=== PATIENT | female | born 2000 | race Caucasian/White ===

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

== ENCOUNTER 2018-04-29 12:51 | Outpatient (CLI) | payer MEDICAID ==
[2018-04-29 14:58] LABS: APPEARANCE,URINE CLEAR; BILIRUBIN,URINE NEGATIVE (NEGATIVE); COLOR,URINE YELLOW; GLUCOSE, URINE NEGATIVE (NEGATIVE); KETONES,URINE NEGATIVE (NEGATIVE); LEUKOCYTE ESTERASE,URINE NEGATIVE (NEGATIVE); NITRITE,URINE NEGATIVE (NEGATIVE); PROTEIN,URINE NEGATIVE (NEGATIVE); URINE SPECIFIC GRAVITY 1.005; UROBILINOGEN,URINE NEGATIVE mg/dL (<2.0)
[2018-04-29 15:10] LABS: URINE AMPHETAMINES SCREEN NEGATIVE; URINE BARBITURATES SCREEN NEGATIVE; URINE BENZODIAZEPINES SCREEN NEGATIVE; URINE COCAINE SCREEN NEGATIVE; URINE MARIJUANA (THC) SCREEN NEGATIVE; URINE METHADONE SCREEN NEGATIVE; URINE PHENCYCLIDINE SCREEN NEGATIVE
== END 2018-04-29 15:29 | disposition home or self-care (01) ==
LOC: LC 12:51
PROVIDERS: ATTEND Obstetrics & Gynecology
PROC: 4A1HXCZ Monitoring of Products of Conception, Cardiac Rate, External Approach (ICD-10-PCS; principal; 2018-04-29)
DX: O47.02 False labor before 37 completed weeks of gestation, second trimester (principal); Z3A.26 26 weeks gestation of pregnancy
CPT/HCPCS: 80307; 81001

== ENCOUNTER 2018-08-04 11:51 | Inpatient (IN) | payer MEDICAID ==
[2018-08-14] MEDS ORDERED: RINGERS SOLUTION,LACTATED 300 ML IV ONE (19:46)
[2018-08-14] MEDS ORDERED: DINOPROSTONE 10 MG VAGINAL INSERT.SR PV PRN (19:46)
[2018-08-14 20:17] LABS: APPEARANCE,URINE SLIGHTLY-CLOUDY; BILIRUBIN,URINE NEGATIVE (NEGATIVE); COLOR,URINE YELLOW; GLUCOSE, URINE NEGATIVE (NEGATIVE); KETONES,URINE NEGATIVE (NEGATIVE); LEUKOCYTE ESTERASE,URINE MODERATE (NEGATIVE); NITRITE,URINE NEGATIVE (NEGATIVE); PROTEIN,URINE 30 mg/dL (NEGATIVE); URINE SPECIFIC GRAVITY 1.009; UROBILINOGEN,URINE NEGATIVE mg/dL (<2.0)
[2018-08-14 20:23] LABS: ABSOLUTE EOSINOPHILS # (AUTO) 0.1 10^3/uL (0.0-0.6); ABSOLUTE LYMPHOCYTES (AUTO) 2.2 10^3/uL (0.5-4.7); ABSOLUTE MONOCYTES (AUTO) 0.8 10^3/uL (0.1-1.4); ABSOLUTE NEUT (AUTO) 9.7 10^3/uL (1.7-8.2); BASOPHILS % (AUTO) 0.2 % (0-2); EOSINOPHILS % (AUTO) 0.6 % (0-6); HEMATOCRIT 34.9 % (36.0-47.0); HEMOGLOBIN 12.2 g/dL (12.0-15.5); LYMPHOCYTES % (AUTO) 17.4 % (13-45); MEAN CORPUSCULAR HGB CONC 34.9 g/dL (32.0-36.0); MEAN CORPUSCULAR VOLUME 95 fl (80-97); MONOCYTES % (AUTO) 6.2 % (3-13); PLATELET COUNT 271 10^3/uL (150-450); RED BLOOD COUNT 3.69 10^6/uL (3.72-5.28); RED CELL DISTRIBUTION WIDTH 13.4 % (11.5-14.0); SEGMENTED NEUTROPHILS % (AUTO) 75.6 % (42-78); TOTAL CELLS COUNTED % (AUTO) 100 %; WHITE BLOOD COUNT 12.8 10^3/uL (4.0-10.5)
[2018-08-14] MEDS ORDERED: DINOPROSTONE 10 MG VAGINAL INSERT.SR ONE (20:40)
[2018-08-14] MEDS: RINGERS SOLUTION,LACTATED 1,000 ML IV PRN (20:41)
[2018-08-14 20:50] LABS: URINE AMPHETAMINES SCREEN NEGATIVE; URINE BARBITURATES SCREEN NEGATIVE; URINE BENZODIAZEPINES SCREEN NEGATIVE; URINE COCAINE SCREEN NEGATIVE; URINE MARIJUANA (THC) SCREEN NEGATIVE; URINE METHADONE SCREEN NEGATIVE; URINE PHENCYCLIDINE SCREEN NEGATIVE
[2018-08-15] MEDS: RINGERS SOLUTION,LACTATED 1,000 ML IV PRN ×4 (04:29→21:14)
--- NOTE | 2018-08-15 08:16 | Admission Physical ---
Datetime Report Generated by CPN: 08/15/2018 08:16 CURRENT ADMISSION Chief Complaint: Scheduled Induction of Labor Indication for Induction: Post Dates Admit Impression : Postterm, Intrauterine ; Induction of Labor Admit Plan- Other: Continue with cervical ripening. Pt may eat breakfast and shower this morning. ALLERGIES Medication Allergies: Yes Medication Allergies: bismuth subsalicylate/Hives (12/23/2017) Latex: No Latex Allergies OBSTETRICAL HISTORY EDC: 08/04/2018 00:00 : 1 Para: 0 Term: 0 : 0 SAB: 0 IAB: 0 Ectopic: 0 Livin Cesareans: 0 VBACs: 0 Multiple Births: 0 Gestational Diabetes: No Rh Sensitization: No Incompetent Cervix: No RJ: No Infertility: No ART Treatment: No Uterine Anomaly: No IUGR: No Hx Previous C/S: No Macrosomia: No Hx Loss/Stillborn: No PIH: No Hx : No Placenta Previa/Abruption: No Depression/PP Depression: No PTL/PROM: No Post Hemorrhage: No Current Procedures: Ultrasound; NST SEE RECORDS Alcohol: No Marijuana : No Cocaine: No Other Illicit Drugs: No Cigarettes: Former Smoker. [id number] MEDICAL HISTORY Diabetes: No Blood Transfusion: No Pulmonary Disease (Asthma, TB): No Breast Disease: No Hypertension: No Manager Grant Surgery: No Heart Disease: No Hosp/Surgery: No Autoimmune Disorder: No Anesthetic Complications: No Kidney Disease: No Abnormal Pap Smear: No Neuro/Epilepsy: No Psychiatric Disorders: No Other Medical Diseases: No Hepatitis/Liver Disease: No Significant Family History: No Varicosities/Phlebitis: No Trauma/Violence : No Thyroid Dysfunction: No INFECTIOUS HISTORY Gonorrhea: No Genital Herpes: No Chlamydia: No Tuberculosis: No Syphilis: No Hepatitis: No HIV/AIDS Exposure: No Rash or Viral Illness: No HPV: No PHYSICAL EXAM General: Normal HEENT: Normal Neurologic: Normal Thyroid: Normal Heart: Normal Lungs: Normal Breast: Normal Back: Normal Abdomen: Normal Genitourinary Exam: Normal Extremities: Normal DTRs: Normal Pelvic Type: Adequate Vital Signs: Reviewed; Within Normal Limits MEMBRANES Membranes: Ruptured FETUS A EGA: 41.4 Monitoring: External US FHR- Baseline: 130 Variability: Moderate 6-25bpm Accelerations: 15X15 Decelerations: None FHR Category: Category I Estimated Weight (gm): 3800 Presentation: Vertex Admit Comment: Pt brought in last night for Cervidil IOL at 41+wks. Doing well this morning, no complaints. GBS negative, plans an epidural when in active labor. Will allow pt to eat breakfast and shower, then will do a VE to assess for cervical change. Attending MD is Dr Baum today PLANS FOR LABOR AND DELIVERY Labor and Delivery: None Pain Management: Epidural Feeding Preference: Formula Benefit of Breast Feed Discussed: Yes Circumcision: N/A INFORMED CONSENT Assignment: Elizabeth Baum MD Signature: with User ID: [email or web address] : with User ID: [email or web address]
[2018-08-15] MEDS ORDERED: OXYTOCIN/NORMAL SALINE 20 UNIT/1,000 ML RTUINJ IV PRN (10:11)
[2018-08-15] MEDS ORDERED: OXYTOCIN 10 UNIT/ML VIAL ONE (10:12)
[2018-08-15] MEDS ORDERED: MISOPROSTOL 0.2 MG TABLET ONE (10:13)
[2018-08-15] MEDS ORDERED: OXYTOCIN/NORMAL SALINE 20 UNIT/1,000 ML RTUINJ ONE (10:13)
[2018-08-15] MEDS ORDERED: LIDOCAINE 1% INJ-PF (10 MG/ML) 30 ML SDV ONE (10:13)
[2018-08-15] MEDS ORDERED: NALBUPHINE HCL INJ 10 MG/1 ML AMPULE INJ ONE ×2 (11:12→17:45)
--- NOTE | 2018-08-15 11:23 | L&D Progress Notes ---
PROGRESS NOTES Datetime Report Generated by CPN: 08/15/2018 11:23 PROGRESS NOTE Impression: Reassuring Heart Rate Procedures: Sterile Vag Exam Procedures- Other: Guillen's Catheter placed Plan: Continue Present Management; Induction Vital Signs : Reviewed; Within Normal Limits Comment: s/p Cervidil overnight, pt did eat breakfast, doing well this morning. No Complaints. Will to start Pitocin to continue with IOL. Pt plans an epidural when in active labor VAGINAL EXAM Dilatation: 1 Effacement: 70 Station: -1 Contractions: q2-3 mild MEMBRANES Membranes: Intact Membranes: Ruptured FETUS A FHR - Baseline: 130 Monitoring: External US Variability: Moderate 6-25bpm Accelerations: 15X15 Decelerations: None FHR Category: Category I : 41.0 Estimated Weight (gm): 3800 Presentation: Vertex SIGNATURE SIGNATURE: [id number];[id number] SIGNATURE: [id number] Assignment: Elizabeth Baum MD Signature: with User ID: [email or web address] : with User ID: [email or web address]
[2018-08-15] MEDS ORDERED: NALBUPHINE HCL INJ 10 MG/1 ML AMPULE ONE ×2 (11:24→17:43)
--- NOTE | 2018-08-15 15:42 | L&D Progress Notes ---
PROGRESS NOTES Datetime Report Generated by CPN: 08/15/2018 15:42 PROGRESS NOTE Impression: Reassuring Heart Rate; Rupture of Membranes Procedures: Artificial ROM; Sterile Vag Exam Plan: Continue Present Management; Induction Informed Consent Obtained- Other: pt may have an epidural Vital Signs : Reviewed; Within Normal Limits Comment: s/p Guillen's catheter, now has fallen out. Pitocin infusing. Pt remains fairly comfortable, but may have an epidural when desires. Position changes encouraged. GBS negative VAGINAL EXAM Dilatation: 5 Effacement: 70 Station: -1 MEMBRANES Membranes: Ruptured Amniotic Fluid Color: Bloody FETUS A Monitoring: External US FHR Category: Category I FETUS C SIGNATURE: [id number];[id number] Assignment: Elizabeth Baum MD Signature: with User ID: [email or web address] : with User ID: [email or web address]
--- NOTE | 2018-08-15 17:53 | L&D Progress Notes ---
PROGRESS NOTES Datetime Report Generated by CPN: 08/15/2018 17:52 PROGRESS NOTE Impression: Reassuring Heart Rate Procedures: Sterile Vag Exam Procedures- Other: by RN Plan: Continue Present Management; Induction Plan Other: Continue Pitocin, may have IV pain medication for now Vital Signs : Reviewed; Within Normal Limits Comment: Pitocin continues, pt desires IV pain medication, may have epidural if she desires. Position changes encouaged. Anticipate . MEMBRANES Membranes: Ruptured Amniotic Fluid Color: Clear FETUS A FHR - Baseline: 125 Monitoring: External US Variability: Moderate 6-25bpm Accelerations: 15X15 Decelerations: None FHR Category: Category I FETUS C SIGNATURE: [id number];[id number] Assignment: Elizabeth Baum MD Signature: with User ID: [email or web address] : with User ID: [email or web address]
--- NOTE | 2018-08-15 19:00 | L&D Progress Notes ---
PROGRESS NOTES Datetime Report Generated by CPN: 08/15/2018 18:59 PROGRESS NOTE Impression: Reassuring Heart Rate Procedures: Sterile Vag Exam Plan: Continue Present Management Plan Other: Continue with Pitocin, pt may have an epidural Vital Signs : Reviewed; Within Normal Limits Comment: Pt desires an epidural. Continue with Pitocin, Anticipate , Position changes encouraged VAGINAL EXAM Dilatation: 6 Effacement: 70 Station: -1 Contractions: q2 MEMBRANES Membranes: Ruptured Amniotic Fluid Color: Clear FETUS A FHR - Baseline: 140 Monitoring: External US Variability: Moderate 6-25bpm Accelerations: 15X15 Decelerations: None FHR Category: Category I FETUS C SIGNATURE: [id number];[id number] Assignment: Elizabeth Baum MD Signature: with User ID: [email or web address] : with User ID: [email or web address]
[2018-08-15] MEDS ORDERED: EPHEDRINE SULFATE INJ 50 MG/1 ML AMPULE ONE (20:17)
[2018-08-15] MEDS ORDERED: FENTANYL/BUPIVACAINE/NS/PF 300 MCG/150 ML RTUINJ EPI ONE (20:18)
[2018-08-15] MEDS ORDERED: BUPIVACAINE HCL 0.5 % INJ/PF 30 ML SDV ONE (20:19)
--- NOTE | 2018-08-15 22:36 | L&D Progress Notes ---
PROGRESS NOTES Datetime Report Generated by CPN: 08/15/2018 22:36 PROGRESS NOTE Impression: Arrest of Dilatation/Descent Impression Other: protracted induction noted. Plan Other: IUPC placed Vital Signs : Reviewed; Within Normal Limits Comment: Appears to be protracted labor. MEMBRANES Pooling: Positive Membranes: Ruptured FETUS A Monitoring: External US : 41.0 FETUS C SIGNATURE: [id number];[id number] Signature: with User ID: [email or web address]
--- NOTE | 2018-08-16 00:57 | L&D Progress Notes ---
PROGRESS NOTES Datetime Report Generated by CPN: 08/16/2018 00:57 PROGRESS NOTE Impression: Reassuring Heart Rate Plan: Continue Present Management Comment: Some progression noted. We will continue with the induction. VAGINAL EXAM Dilatation: 7 Effacement: 80 Station: -1 FETUS A FHR - Baseline: 140 Variability: Moderate 6-25bpm FHR Category: Category I FETUS C SIGNATURE: [id number];[id number] Signature: with User ID: [email or web address]
[2018-08-16] MEDS ORDERED: GLYCERIN/WITCH HAZEL LEAF 1 EACH MED..PAD TP PRN (03:54)
[2018-08-16] MEDS ORDERED: DIPHENHYDRAMINE HCL 25 MG CAPSULE PO PRN (03:54)
[2018-08-16] MEDS ORDERED: ACETAMINOPHEN WITH CODEINE #3 TABLET PO PRN ×2 (03:54)
[2018-08-16] MEDS ORDERED: PROMETHAZINE HCL 25 MG TABLET PO PRN (03:54)
[2018-08-16] MEDS ORDERED: OXYTOCIN/NORMAL SALINE 20 UNIT/1,000 ML RTUINJ IV PRN (03:54)
[2018-08-16] MEDS ORDERED: DIBUCAINE 1% OINTMENT 28 GM TP PRN (03:54)
[2018-08-16] MEDS ORDERED: MAGNESIUM HYDROXIDE SUSP 30 ML UDCUP PO PRN (03:54)
[2018-08-16] MEDS ORDERED: ACETAMINOPHEN 650 MG SUPP.RECT PR PRN (03:54)
[2018-08-16] MEDS ORDERED: DIPH/PERTUSS(ACELL)/TETANUS VAC/PF 0.5 ML SYR (>=10YO) IM PRN (03:54)
[2018-08-16] MEDS ORDERED: PROMETHAZINE HCL INJ 25 MG/1 ML VIAL IV PRN (03:54)
[2018-08-16] MEDS ORDERED: PROMETHAZINE HCL 25 MG SUPP.RECT PR PRN (03:54)
[2018-08-16] MEDS ORDERED: NA PHOS,M-B/NA PHOS,DI-BA (ADULT) 133 ML ENEMA PR PRN (03:54)
[2018-08-16] MEDS ORDERED: MEASLES,MUMPS&RUBELLA VACC/PF 0.5 ML VIAL SUBCUT PRN (03:54)
[2018-08-16] MEDS ORDERED: ZOLPIDEM TARTRATE 5 MG TABLET PO PRN (03:54)
[2018-08-16] MEDS ORDERED: PSEUDOEPHEDRINE HCL 30 MG TABLET PO PRN (03:54)
--- NOTE | 2018-08-16 05:12 | Delivery Summary ---
Del Sum A-C Datetime Report Generated by CPN: 08/16/2018 05:12 DELIVERY PERSONNEL DELIVERY PERSONNEL: [id number] Delivery Doctor:: Elizabeth Baum MD Labor and Delivery Nurse:: Elham Rene RN River Rafting Guide/OIL EXPELLER: Aislinn Ayala, COMMERCIAL BAKING TEACHER Additional Personnel: : Rosita Massimo, RN MATERNAL INFORMATION Delivery Anesthesia: Epidural Medications After Delivery: Pitocin Drip 20 Units/1000ml NSS Estimated Blood Loss (ml): 250 Maternal Complications: None LABOR SUMMARY EDC: 08/04/2018 00:00 No. Babies in Womb: 1 Attempted: No Labor Anesthesia: Epidural LABOR INFORMATION Reason for Induction: Post Dates Onset of Labor: 08/16/2018 00:52 Complete Dilatation: 08/16/2018 02:59 Cervical Ripening Agents: Patricio Balloon Oxytocin: Induction Group B Beta Strep: negative Antibiotics # of Doses: 0 Steroids Given: None Reason Steroids Not Administered: Not Applicable MEMBRANES Membranes Rupture Method: Artificial Rupture of Membranes: 08/15/2018 15:34 Length of Rupture (hr): 11.85 Amniotic Fluid Color: Clear Amniotic Fluid Amount: Small Amniotic Fluid Odor: Normal STAGES OF LABOR Stage 1 hr: 2 Stage 1 min: 7 Stage 2 hr: 0 Stage 2 min: 26 Stage 3 hr: 0 Stage 3 min: 4 Total Time in Labor hr: 2 Total Time in Labor min: 37 VAGINAL DELIVERY Episiotomy: None Laceration #1: Vaginal Laceration Extension #1: Second Degree Laceration #2: None Laceration Extension #2: N/A Laceration #3: None Laceration Extension #3: N/A Laceration Repair: Yes Laceration Repair Note: Repair with 3-0 chromic in the usual fashion. Second degree laceration just to the rectum but not through the musculature of the rectum. Sponge Count Correct: Vaginal Sweep Performed Sharps Count Correct: Yes BABY A INFORMATION Delivery Date/Time: 08/16/2018 03:25 Method of Delivery: Vaginal Born in Route : No : N/A Forceps: N/A Vacuum Extraction: N/A Shoulder Dystocia : No PRESENTATION/POSITION BABY A Presentation: Cephalic Cephalic Presentation: Vertex Vertex Position: Right Occipital Anterior Breech Presentation: N/A PLACENTA INFORMATION BABY A Placenta Delivery Time : 08/16/2018 03:29 Placenta Method of Delivery: Spontaneous Placenta Status: Delivered SCORES BABY A Heart Rate 1 min: >100 bpm Resp Effort 1 min: Good Cry Reflex Irritability 1 min: Cough or Sneeze or Pulls Away Muscle Tone 1 min: Active Motion Color 1 min: Blue/Pale SCORE 1 MIN: 8 Heart Rate 5 min: >100 bpm Resp Effort 5 min: Good Cry Reflex Irritability 5 min: Cough or Sneeze or Pulls Away Muscle Tone 5 min: Active Motion Color 5 min: Body [place], Extremities Blue SCORE 5 MIN: 9 INFANT INFORMATION BABY A Gestational Age at Delivery: 41.5 Gestational Status: Late Term- 41- 41.6 Weeks Infant Outcome : Liveborn Condition : Stable Infant Sex: Female IDENTIFICATION BABY A Infant Verification Date/Time: 08/16/2018 03:34 ID Band Number: [id number] Mother's Name Verified: Yes RN Verifying Infant: SMilana Keys, RNC WEIGHT/LENGTH BABY A Infant Birthweight (gm): 4070 Weight (lb): 9 Infant Weight (oz): 0 Length (in): 20.50 Infant Length (cm): 52.07 CORD INFORMATION BABY A No. Cord Vessels: 3 Nuchal Cord : N/A Cord Blood Taken: Yes-For Storage (Mom's Blood type +) Infant Suction: None ASSESSMENT BABY A Infant Complications: None Physical Findings at Delivery: Within Normal Limits Skin to Skin: Yes Transferred To: Remains with Mother SIGNATURES Signature: with User ID: [email or web address]
[2018-08-16] MEDS: BENZOCAINE/MENTHOL AEROSOL SPRAY 56 ML TOP PRN (06:21)
[2018-08-16] MEDS: IBUPROFEN 800 MG TABLET PO SCH ×3 (06:21→21:44)
[2018-08-16] MEDS: DOCUSATE SODIUM 100 MG CAPSULE PO SCH ×2 (09:46→19:38)
[2018-08-16] MEDS: SENNOSIDES/DOCUSATE 8.6-50 MG 1 EACH TABLET PO SCH (09:46)
[2018-08-16] MEDS: PRENATAL VITAMIN W DHA CAPSULE PO SCH (09:47)
[2018-08-16] MEDS: FERROUS SULFATE 325 MG TABLET PO SCH ×2 (09:47→19:38)
[2018-08-16] MEDS: FAMOTIDINE 20 MG TABLET PO SCH ×2 (09:47→21:44)
[2018-08-16] MEDS: VALACYCLOVIR HCL 500 MG TABLET PO SCH (09:55)
--- NOTE | 2018-08-16 10:47 | PDOC PROGRESS REPORT ---
Subjective-OB Progress Note for:: 08/16/18 Subjective: PP Day 0, delivered this am. Pt doing well, denies heavy bleeding. Regular diet and voiding without difficulty. C/o pain with 2* perineal laceration. Physical Exam (OB) Vital Signs: Temp Pulse Resp BP Pulse Ox 98.6 F 100 16 88/52 L 100 08/16/18 08:18 08/16/18 09:13 08/16/18 08:18 08/16/18 09:13 08/16/18 08:18 Intake & Output 08/15/18 08/16/18 08/17/18 06:59 06:59 06:59 Intake Total 975 1812 Balance 975 1812 Weight 105.8 kg - Abdomen Description: Tender, Soft Hernia Present: No Fundal Description: Firm, Midline Fundal Height: u/u - u/2 Objective-Diagnostic Laboratory: 08/14/18 20:04 Assessment and Plan(PN) - Assessment and Plan (1) (normal spontaneous vaginal delivery) Is this a current diagnosis for this admission?: Yes (2) Perineal laceration during delivery, delivered Is this a current diagnosis for this admission?: Yes Plan:: Encouraged [place] - Time Spent with Patient Time with patient: Less than 15 minutes Medications reviewed and adjusted accordingly: Yes - Disposition Anticipated Discharge: Home Within: within 48 hours
[2018-08-17] MEDS: IBUPROFEN 800 MG TABLET PO SCH ×3 (05:52→21:26)
[2018-08-17 07:39] LABS: HEMATOCRIT 26.9 % (36.0-47.0); MEAN CORPUSCULAR HEMOGLOBIN 33.2 pg (27.0-33.4); MEAN CORPUSCULAR HGB CONC 34.6 g/dL (32.0-36.0); MEAN CORPUSCULAR VOLUME 96 fl (80-97); PLATELET COUNT 195 10^3/uL (150-450); RED CELL DISTRIBUTION WIDTH 13.3 % (11.5-14.0)
[2018-08-17 07:41] LABS: HEMOGLOBIN 9.3 g/dL (12.0-15.5)
--- NOTE | 2018-08-17 08:53 | PDOC PROGRESS REPORT ---
Subjective Progress Note for:: 08/17/18 Subjective:: Patient states that she feels good; decreasing lochia. Patient denies chest pain, shortness of breath, fever/chills and nausea/vomiting. She is ambulating and voiding without difficulty. Reason For Visit: INDUCTION Physical Exam - Physical Exam Vital Signs: Temp Pulse Resp BP Pulse Ox 97.8 F 82 20 102/60 98 08/17/18 07:50 08/17/18 07:50 08/17/18 07:50 08/17/18 07:50 08/17/18 07:50 Intake & Output 08/16/18 08/17/18 08/18/18 06:59 06:59 06:59 Intake Total 1812 Balance 1812 General appearance: PRESENT: no acute distress Respiratory exam: PRESENT: clear to auscultation iván Cardiovascular exam: PRESENT: RRR GI/Abdominal exam: PRESENT: normal bowel sounds, soft - Fundus firm and below umbilicus Extremities exam: ABSENT: calf tenderness, clubbing, full ROM, joint swelling, pedal edema, tenderness, +1 edema, +2 edema, other Result Laboratory Results: 08/17/18 06:46 08/17/18 06:46 WBC 11.0 H RBC 2.80 L Hgb 9.3 L D Hct 26.9 L MCV 96 MCH 33.2 MCHC 34.6 RDW 13.3 Plt Count 195 Assessment & Plan - Diagnosis (1) anemia Is this a current diagnosis for this admission?: Yes (2) (normal spontaneous vaginal delivery) Is this a current diagnosis for this admission?: Yes (3) Perineal laceration during delivery, delivered Is this a current diagnosis for this admission?: Yes - Plan Summary Plan Summary: Plan: 1.PPD#1 status post normal spontaneous vaginal delivery--doing well 2. Anemia--stable 3. Continue care
[2018-08-17] MEDS: FAMOTIDINE 20 MG TABLET PO SCH ×2 (10:21→21:27)
[2018-08-17] MEDS: PRENATAL VITAMIN W DHA CAPSULE PO SCH (10:21)
[2018-08-17] MEDS: FERROUS SULFATE 325 MG TABLET PO SCH ×2 (10:21→18:06)
[2018-08-17] MEDS: DOCUSATE SODIUM 100 MG CAPSULE PO SCH ×2 (10:21→18:06)
[2018-08-17] MEDS: VALACYCLOVIR HCL 500 MG TABLET PO SCH (10:22)
[2018-08-17] MEDS: SENNOSIDES/DOCUSATE 8.6-50 MG 1 EACH TABLET PO SCH (10:22)
[2018-08-17] MEDS: BENZOCAINE/MENTHOL AEROSOL SPRAY 56 ML TOP PRN (10:24)
[2018-08-18] MEDS: IBUPROFEN 800 MG TABLET PO SCH ×2 (06:06→14:22)
[2018-08-18 08:37] VITALS: BP 99/50
[2018-08-18] MEDS ORDERED: DIPHENHYDRAMINE HCL 25 MG CAPSULE ONE (10:08)
[2018-08-18] MEDS: VALACYCLOVIR HCL 500 MG TABLET PO SCH (10:11)
[2018-08-18] MEDS: DOCUSATE SODIUM 100 MG CAPSULE PO SCH (10:12)
[2018-08-18] MEDS: FERROUS SULFATE 325 MG TABLET PO SCH (10:12)
[2018-08-18] MEDS: SENNOSIDES/DOCUSATE 8.6-50 MG 1 EACH TABLET PO SCH (10:12)
[2018-08-18] MEDS: PRENATAL VITAMIN W DHA CAPSULE PO SCH (10:12)
--- NOTE | 2018-08-18 10:29 | PDOC PROGRESS REPORT ---
Subjective-OB Progress Note for:: 08/18/18 Subjective: Doing well, ready to go home, holding her baby, about 2 hours ago rt lip started to swell after eating bkf, no SOB or trouble breathing, will pick at lip sometimes and pull the skin back, no HSV lesion, scant bleeding, bottle feeding Physical Exam (OB) Vital Signs: Temp Pulse Resp BP Pulse Ox 98.6 F 88 18 99/50 L 99 08/18/18 08:07 08/18/18 08:07 08/18/18 08:07 08/18/18 08:07 08/18/18 08:07 - PIH/Pre-Eclampsia DTR's: 2 + Clonus: Negative Headache: Absent Epigastric Pain: No Visual Changes: No - Lochia Lochia Amount: Scant < 10 ml Lochia Color: Rubra/Red - Abdomen Description: Tender, Soft Hernia Present: No Fundal Description: Firm, Midline Fundal Height: u/u - u/2 Objective-Diagnostic Laboratory: 08/17/18 06:46 Assessment and Plan(PN) - Assessment and Plan (1) (normal spontaneous vaginal delivery) Is this a current diagnosis for this admission?: Yes (2) Perineal laceration during delivery, delivered Is this a current diagnosis for this admission?: Yes (3) anemia Is this a current diagnosis for this admission?: Yes - Time Spent with Patient Time with patient: Less than 15 minutes Medications reviewed and adjusted accordingly: Yes - Disposition Anticipated Discharge: Home Within: within 24 hours
[2018-08-18] MEDS ORDERED: DIPHENHYDRAMINE HCL 50 MG CAPSULE PO ONE (10:30)
--- NOTE | 2018-08-18 10:33 | PDOC DISCHARGE SUMMARY ---
Final Diagnosis Discharge Date: 08/18/18 - Final Diagnosis (1) (normal spontaneous vaginal delivery) Is this a current diagnosis for this admission?: Yes (2) Perineal laceration during delivery, delivered Is this a current diagnosis for this admission?: Yes (3) anemia Is this a current diagnosis for this admission?: Yes Discharge Data - Discharge Medication Prescriptions: Ferrous Sulfate [Feosol 325 mg Tablet] 325 mg PO BID #60 tablet Home Medications: Vit/Iron Fum/Folic AC [ Tablet] 1 each PO DAILY 04/29/18 Valacyclovir HCl [Valtrex 500 mg Tablet] 1,000 mg PO DAILY 04/29/18 Ferrous Sulfate [Feosol 325 mg Tablet] 325 mg PO BID #60 tablet 08/18/18 Gestational Age: 41.5 Reason(s) for Admission: Induction of Labor Intrapartum Procedure(s): Spontaneous Vaginal Delivery Complication(s): Laceration-Vaginal Laceration-Degree: 2nd - Diagnosis Test Laboratory: Temp Pulse Resp BP Pulse Ox 98.6 F 88 18 99/50 L 99 08/18/18 08:07 08/18/18 08:07 08/18/18 08:07 08/18/18 08:07 08/18/18 08:07 08/14/18 08/14/18 08/17/18 19:44 20:04 06:46 RBC 3.69 L 2.80 L Hgb 12.2 9.3 L D Hct 34.9 L 26.9 L Urine Opiates Screen NEGATIVE - Discharge information/Instructions Discharge Activity: Activity As Tolerated, No Lifting Over 10 Pounds, No Lifting /Push/Pulling, Pelvic Rest Discharge Diet: As Tolerated, Regular Disposition: HOME, SELF-CARE Follow up with: [facility] in: 4, Weeks
== END 2018-08-18 15:15 | disposition home or self-care (01) | DRG 807 ==
LOC: LR 08-14 19:29 → 2S 08-16 05:50
PROVIDERS: ADMIT Obstetrics & Gynecology Gynecology; ATTEND Obstetrics & Gynecology Gynecology
PROC: 4A1HXCZ Monitoring of Products of Conception, Cardiac Rate, External Approach (ICD-10-PCS; 2018-08-14)
PROC: 3E033VJ Introduction of Other Hormone into Peripheral Vein, Percutaneous Approach (ICD-10-PCS; 2018-08-15)
PROC: 10907ZC Drainage of Amniotic Fluid, Therapeutic from Products of Conception, Via Natural or Artificial Opening (ICD-10-PCS; 2018-08-15)
PROC: 10E0XZZ Delivery of Products of Conception, External Approach (ICD-10-PCS; principal; 2018-08-16)
PROC: 0KQM0ZZ Repair Perineum Muscle, Open Approach (ICD-10-PCS; 2018-08-16)
DX: O48.0 Post-term pregnancy (principal); O70.1 Second degree perineal laceration during delivery; O90.81 Anemia of the puerperium; D64.9 Anemia, unspecified; Z88.8 Allergy status to other drugs, medicaments and biological substances; Z87.891 Personal history of nicotine dependence; Z3A.41 41 weeks gestation of pregnancy; Z37.0 Single live birth
CPT/HCPCS: 36415; 80307; 81005; 85025; 85027; 86592; 86850; 86900; 86901; 94760; J2300; J2590; J3010; J3490

== ENCOUNTER 2018-08-19 09:48 | Emergency (ER) | payer MEDICAID ==
[2018-08-19 09:53] VITALS: BP 113/54
--- NOTE | 2018-08-19 10:34 | ER Document Report ---
ED General - General Chief Complaint: Vaginal Bleeding Stated Complaint: VAGINAL BLEEDING Time Seen by Provider: 08/19/18 10:22 Notes: Patient is a 18-year-old female that presents to the emergency department for chief complaint of passing a vaginal blood clots. Patient reports that she was just discharged from the hospital yesterday, she delivered her child vaginally 3 days ago, without complication. She passed a clot today just prior to ED arrival, and it concerned her so she came to the emergency department. She denies any continued bleeding, lightheadedness, dizziness, nausea, vomiting. She has had mild pelvic cramping, but that has not changed or gotten worse from when she was in the hospital. Denies having any other symptoms or concerns at this time. Past Medical History: Denies chronic medical conditions Past Surgical History: Denies major surgical history Social History: Denies current tobacco, alcohol or drug use Family History: Reviewed and noncontributory for presenting illness Allergies: Reviewed, see documented allergy list. REVIEW OF SYSTEMS: Unless otherwise stated in this report the patient's positive and negative responses for review of systems for constitutional, eyes, ENT, cardiovascular, respiratory, gastrointestinal, neurological, genitourinary, musculoskeletal, and integumentary systems and related systems to the presenting problem are either as stated in the HPI or were not pertinent or were negative for the symptoms and/or complaints related to the presenting medical problem. PHYSICAL EXAMINATION: Vital signs reviewed, nursing noted reviewed. GENERAL: Well-appearing, well-nourished and in no acute distress. HEAD: Atraumatic, normocephalic. EYES: Eyes appear normal, extraocular movements intact, sclera anicteric, conjunctiva are normal. ENT: nares patent, oropharynx clear without exudates. Moist mucous membranes. NECK: Normal range of motion, supple without lymphadenopathy LUNGS: Breath sounds clear to auscultation bilaterally and equal. No wheezes rales or rhonchi. HEART: Regular rate and rhythm without murmurs ABDOMEN: Soft, nontender, normoactive bowel sounds. No rebound, guarding, or rigidity. No masses appreciated. EXTREMITIES: Nontender, good range of motion, no pitting or edema. NEUROLOGICAL: No focal neurological deficits. Moves all extremities spontaneously Motor and sensory grossly intact on exam. PSYCH: Normal mood, normal affect. SKIN: Warm, Dry, normal turgor, no rashes or lesions noted on exposed skin TRAVEL OUTSIDE OF THE [place] IN LAST 30 DAYS: No - Related Data Allergies/Adverse Reactions: bismuth subsalicylate [From Pepto-Bismol] Allergy (Verified 08/19/18 09:49) Hives Past Medical History - Social History Smoking Status: Never Smoker Chew tobacco use (# tins/day): No Frequency of alcohol use: None Drug Abuse: None Family History: Reviewed & Not Pertinent Patient has suicidal ideation: No Patient has homicidal ideation: No Renal/ Medical History: Denies: Hx Peritoneal Dialysis Past Surgical History: Reports: Hx Oral Surgery - Immunizations Immunizations up to date: Yes Hx Diphtheria, Pertussis, Tetanus Vaccination: Yes Physical Exam - Vital signs Vitals: Temp Pulse Resp BP Pulse Ox 98.6 F 88 16 113/54 L 98 08/19/18 09:52 08/19/18 09:52 08/19/18 09:52 08/19/18 09:52 08/19/18 09:52 Course - Re-evaluation Re-evalutation: Patient seen and examined, vital signs reviewed, patient appears well on exam, is a concerned about the blood clot she passed, she is not having continuous bleeding, I feel that the patient can be discharged, given reassurance, and follow-up with HEAD STRENGTH AND CONDITIONING COACH. Patient was agreeable to this plan, she was given anticipatory guidance and reasons to return to the emergency department including continued vaginal bleeding, lightheadedness, or any other concerns she may have. - Vital Signs Vital signs: Temp Pulse Resp BP Pulse Ox 98.6 F 88 16 113/54 L 98 08/19/18 09:52 08/19/18 09:52 08/19/18 09:52 08/19/18 09:52 08/19/18 09:52 Discharge - Discharge Clinical Impression: Vaginal bleeding Condition: Stable Disposition: HOME, SELF-CARE Instructions: Vaginal Bleeding ([facility]) Additional Instructions: Please follow-up with your HEAD STRENGTH AND CONDITIONING COACH, call for an appointment on Tuesday, if you need to return to the emergency department, do not hesitate weeks particularly if you are having lightheadedness, or having continuous vaginal bleeding, and soaking through menstrual pads, if you have to use more than 1 in an hour, please immediately return to the emergency department. Referrals: [facility] [Provider Group] - Follow up in 3-5 days
== END 2018-08-19 10:35 | disposition home or self-care (01) ==
LOC: ER 09:48
DX: O72.2 Delayed and secondary postpartum hemorrhage (principal); O90.89 Other complications of the puerperium, not elsewhere classified; R10.2 Pelvic and perineal pain; Z88.8 Allergy status to other drugs, medicaments and biological substances
CPT/HCPCS: 99284

== ENCOUNTER 2019-11-28 00:19 | Emergency (ER) | payer SELFPAY ==
[2019-11-28 03:59] LABS: APPEARANCE,URINE SLIGHTLY-CLOUDY; BILIRUBIN,URINE NEGATIVE (NEGATIVE); COLOR,URINE YELLOW; GLUCOSE, URINE NEGATIVE (NEGATIVE); KETONES,URINE NEGATIVE (NEGATIVE); LEUKOCYTE ESTERASE,URINE TRACE (NEGATIVE); NITRITE,URINE NEGATIVE (NEGATIVE); PROTEIN,URINE NEGATIVE (NEGATIVE); URINE SPECIFIC GRAVITY 1.017; UROBILINOGEN,URINE NEGATIVE mg/dL (<2.0)
[2019-11-28 04:03] LABS: ABSOLUTE EOSINOPHILS # (AUTO) 0.1 10^3/uL (0.0-0.6); ABSOLUTE LYMPHOCYTES (AUTO) 2.3 10^3/uL (0.5-4.7); ABSOLUTE MONOCYTES (AUTO) 0.5 10^3/uL (0.1-1.4); ABSOLUTE NEUT (AUTO) 4.9 10^3/uL (1.7-8.2); BASOPHILS % (AUTO) 0.5 % (0-2); EOSINOPHILS % (AUTO) 1.5 % (0-6); HEMATOCRIT 37.1 % (36.0-47.0); HEMOGLOBIN 12.7 g/dL (12.0-15.5); LYMPHOCYTES % (AUTO) 28.6 % (13-45); MEAN CORPUSCULAR HEMOGLOBIN 29.9 pg (27.0-33.4); MEAN CORPUSCULAR HGB CONC 34.3 g/dL (32.0-36.0); MEAN CORPUSCULAR VOLUME 87 fl (80-97); MONOCYTES % (AUTO) 6.8 % (3-13); PLATELET COUNT 293 10^3/uL (150-450); RED BLOOD COUNT 4.25 10^6/uL (3.72-5.28); RED CELL DISTRIBUTION WIDTH 13.5 % (11.5-14.0); SEGMENTED NEUTROPHILS % (AUTO) 62.6 % (42-78); TOTAL CELLS COUNTED % (AUTO) 100 %; WHITE BLOOD COUNT 7.9 10^3/uL (4.0-10.5)
--- NOTE | 2019-11-28 05:27 | ER Document Report ---
ED GI/ - General Chief Complaint: Vaginal Bleeding Stated Complaint: VAGINAL BLEEDING Time Seen by Provider: 11/28/19 04:56 Notes: Patient is a 19-year-old female that comes emergency department for chief complaint of lower abdominal cramping and vaginal bleeding. She states that she has been bleeding daily for the past 2 weeks although she does state that this is essentially spotting and she only sees it when she wipes. She also states that she had a menstrual cycle almost every 2 weeks since the start of the year. She is currently on control (Sprintec) but she admits that she does not take this on a completely daily basis. She denies any surgeries or daily medications, she has been once before. She states she is concerned she is and bleeding or that there is something else wrong. She denies vomiting, fever, current abdominal pain, vaginal discharge, concerns of STD, dysuria, flank pain. TRAVEL OUTSIDE OF THE [place] IN LAST 30 DAYS: Yes - Related Data Allergies/Adverse Reactions: bismuth subsalicylate [From Pepto-Bismol] Allergy (Verified 11/28/19 02:44) Hives Past Medical History - General Information source: Patient - Social History Smoking Status: Current Every Day Smoker Chew tobacco use (# tins/day): No Frequency of alcohol use: Occasional Drug Abuse: None Lives with: Family Family History: Reviewed & Not Pertinent Patient has suicidal ideation: No Patient has homicidal ideation: No Renal/ Medical History: Denies: Hx Peritoneal Dialysis Past Surgical History: Reports: Hx Oral Surgery - Immunizations Immunizations up to date: Yes Hx Diphtheria, Pertussis, Tetanus Vaccination: Yes Review of Systems - Review of Systems Constitutional: No symptoms reported EENT: No symptoms reported Cardiovascular: No symptoms reported Respiratory: No symptoms reported Gastrointestinal: See HPI Genitourinary: No symptoms reported Female Genitourinary: See HPI Musculoskeletal: No symptoms reported Skin: No symptoms reported Hematologic/Lymphatic: No symptoms reported Neurological/Psychological: No symptoms reported Physical Exam - Vital signs Vitals: Temp Pulse Resp BP Pulse Ox 98.4 F 90 20 128/86 H 100 11/28/19 00:31 11/28/19 00:31 11/28/19 00:31 11/28/19 00:31 11/28/19 00:31 - Notes Notes: GENERAL: Alert, interacts well. No acute distress. HEAD: Normocephalic, atraumatic. EYES: Pupils equal, round, and reactive to light. Extraocular movements intact. ENT: Oral mucosa moist, tongue midline. Oropharynx unremarkable. Airway patent. LUNGS: Clear to auscultation bilaterally, no wheezes, rales, or rhonchi. No respiratory distress. HEART: Regular rate and rhythm. No murmur ABDOMEN: Soft, non-tender. Non-distended. Bowel sounds present in all 4 quadrants. GENITOURINARY: Deferred EXTREMITIES: Moves all 4 extremities spontaneously. No edema, normal radial and dorsalis pedis pulses bilaterally. No cyanosis. BACK: no cervical, thoracic, lumbar midline tenderness. No saddle anesthesia, normal distal neurovascular exam. Moves all extremities in full range of motion. NEUROLOGICAL: Alert and oriented x3. Normal speech. Cranial nerves II through XII grossly intact. PSYCH: Normal affect, normal mood. SKIN: Warm, dry, normal turgor. No rashes or lesions noted. Course - Re-evaluation Re-evalutation: Patient's exam and vital signs unremarkable. She is very well-appearing. She was relieved to hear she was not . CBC unremarkable, urinalysis nonspecific, ultrasound was performed and shows ovarian cyst without torsion which is simple and does not require follow-up. No obvious source of the bleeding noted. Patient has nontender abdomen. Patient happy with these results, provided her with a copy, discussed different causes of bleeding and HEAV[employer] EQUIPMENT RENTAL ASSOCIATE follow-up, patient states appreciation and agreement. Stable at time of discharge. - Vital Signs Vital signs: Temp Pulse Resp BP Pulse Ox 98.2 F 96 16 93/53 L 100 11/28/19 07:08 11/28/19 07:08 11/28/19 07:08 11/28/19 07:08 11/28/19 07:08 - Laboratory Result Diagrams: 11/28/19 03:00 Laboratory results interpreted by me: 11/28/19 03:00 Urine Blood MODERATE H Ur Leukocyte Esterase TRACE H Discharge - Discharge Clinical Impression: Vaginal bleeding, Menorrhagia with irregular cycle Condition: Stable Disposition: HOME, SELF-CARE Additional Instructions: You do have an ovarian cyst on your right ovary, this is a simple appearing cyst and does not require follow-up. Your test is negative. The remaining work-up is unremarkable. The cyst does not appear to be bleeding and does not appear to be the source of your symptoms. Suspect your symptoms are from a hormonal cause. I recommend HE[employer] EQUIPMENT RENTAL ASSOCIATE follow-up for additional management. Return for any concerning symptoms including severe or sudden pain, vomiting, fever, or any other concerning symptoms. Forms: Return to Work
--- NOTE | 2019-11-28 06:52 | RADIOLOGY REPORT (SQ) ---
EXAM DESCRIPTION: Pelvic ultrasound CLINICAL HISTORY: 19 years, 2000, pelvic pain, persistent vaginal bleeding COMPARISON: None TECHNIQUE: Utilizing a curved array transducer, real-time ultrasound evaluation of the female pelvis was performed. Color Doppler imaging was used to assess vascular flow. A transvaginal probe was used to further delineate adnexal structures. FINDINGS: The uterus is normal in size and morphology measuring 9.2 x 5.5 x 4.0 cm. There are no abnormal uterine masses. The endometrial stripe measure 6.8 mm. The cervix is grossly normal in appearance. The right ovary measures 5.3 x 5.0 x 4.6 cm. There are no dominant right ovarian masses or complex lesions. There is an anechoic right ovarian cyst measuring 4.4 x 4.5 x 3.9 cm. There is intact vascular flow to the right ovary. The left ovary measures 5.9 x 2.9 x 2.8 cm. There are no dominant left ovarian masses or complex lesions. There are anechoic left ovarian cyst measuring up to 1.3 cm in diameter. There is intact vascular flow to the left ovary. Limited images of the urinary bladder demonstrate no gross abnormalities. IMPRESSION: 1. Intact vascular flow to bilateral ovaries. 2. Dominant right ovarian cyst not requiring imaging follow-up given the patient's age and the size of the cyst. 3. Unremarkable uterus. 4.5 cm simple ovarian cyst. No follow-up imaging is recommended. Reference: Radiology 2010 Jun;256(3):948-79
[2019-11-28 07:09] VITALS: BP 93/53
== END 2019-11-28 07:09 | disposition home or self-care (01) ==
LOC: ER 00:19
DX: N93.9 Abnormal uterine and vaginal bleeding, unspecified (principal); N92.0 Excessive and frequent menstruation with regular cycle; R10.30 Lower abdominal pain, unspecified; Z79.899 Other long term (current) drug therapy; Z88.8 Allergy status to other drugs, medicaments and biological substances; F17.200 Nicotine dependence, unspecified, uncomplicated
CPT/HCPCS: 36415; 76830; 81001; 81025; 85025; 87086; 93976; 99284